=== PATIENT | female | born 1960 | race Caucasian/White ===

== ENCOUNTER 2023-07-05 11:49 | Day surgery (SDC) | payer OTHER ==
[2023-07-05] MEDS ORDERED: Depo-Medrol 40 MG/ML IM ONE (11:50)
[2023-07-05] MEDS ORDERED: BUPIVACAINE 0.5% VIAL IJ ONE (11:50)
[2023-07-05] MEDS ORDERED: DIPRIVAN 200 MG/20 ML IV ONE (15:03)
[2023-07-05] MEDS ORDERED: Lactated Ringers 1,000 ML IV ONE (16:01)
--- NOTE | 2023-07-05 16:40 | XRAY ---
Indication: Bilateral SI joint injection. Intraoperative fluoroscopy provided for 14 seconds. 4 digital spot image submitted for interpretation demonstrates posterior needle tip projecting over the left and right SI joint. Correlate with intraoperative findings/report.
--- NOTE | 2023-07-05 16:46 | XRAY ---
14 seconds of fluoroscopy was used in surgery for a bilateral sacroiliac joint injection.
== END 2023-07-05 15:33 | disposition home or self-care (01) ==
LOC: SDC-PAIN 11:49
PROVIDERS: ATTEND Psychiatry & Neurology Pain Medicine
DX: M46.1 Sacroiliitis, not elsewhere classified (principal)
CPT/HCPCS: 27096; 72202; 77002; J1030; J2704; G0260

== ENCOUNTER 2023-08-16 10:59 | Day surgery (SDC) | payer OTHER ==
[2023-08-16] MEDS ORDERED: Depo-Medrol 40 MG/ML IM ONE (11:00)
[2023-08-16] MEDS ORDERED: LIDOCAINE HCL 1% 50 MG/5 ML VL PF IJ ONE (11:00)
[2023-08-16] MEDS ORDERED: Sodium Chloride 0.9(Preservative Free) 10 ML IJ ONE (11:00)
[2023-08-16] MEDS ORDERED: DIPRIVAN 200 MG/20 ML IV ONE (13:29)
[2023-08-16] MEDS ORDERED: Lactated Ringers 1,000 ML IV ONE (14:21)
--- NOTE | 2023-08-16 14:39 | XRAY ---
Indication: Lumbar SEBASTIAN. Intraoperative fluoroscopy provided for 20 seconds. 2 digital spot images submitted for interpretation demonstrates posterior needle tip projecting posterior to lumbosacral junction interspace. Small amount of contrast injected for needle tip placement. Correlate with intraoperative findings/report.
--- NOTE | 2023-08-16 17:06 | XRAY ---
20 seconds of fluoroscopy was used in surgery for a left L3-L5 lumbar SEBASTIAN.
== END 2023-08-16 14:04 | disposition home or self-care (01) ==
LOC: SDC-PAIN 10:59
PROVIDERS: ATTEND Psychiatry & Neurology Pain Medicine
DX: M54.16 Radiculopathy, lumbar region (principal)
CPT/HCPCS: 62323; 72100; 77003; J1010; J2001; J2704; Q9966

== ENCOUNTER 2023-11-29 12:29 | Day surgery (SDC) | payer OTHER ==
[2023-11-29] MEDS ORDERED: Depo-Medrol 40 MG/ML IM ONE (12:30)
[2023-11-29] MEDS ORDERED: Sodium Chloride 0.9(Preservative Free) 10 ML IJ ONE (12:30)
[2023-11-29] MEDS ORDERED: Lactated Ringers 1,000 ML IV ONE (14:35)
[2023-11-29] MEDS ORDERED: DIPRIVAN 200 MG/20 ML IV ONE (14:40)
[2023-11-29] MEDS ORDERED: MORPHINE SULFATE 2 MG INJ ONE (14:59)
--- NOTE | 2023-11-29 15:17 | XRAY ---
Indication: Caudal SEBASTIAN. Intraoperative fluoroscopy provided for 14 seconds. 2 digital spot image submitted for interpretation demonstrates caudal needle tip projecting mid sacrum. Small amount of contrast injected for needle tip placement. Correlate with intraoperative findings/report.
--- NOTE | 2023-11-29 15:17 | XRAY ---
14 seconds of fluoroscopy was used in surgery for a caudal SEBASTIAN.
== END 2023-11-29 15:28 | disposition home or self-care (01) ==
LOC: SDC-PAIN 12:29
PROVIDERS: ATTEND Psychiatry & Neurology Pain Medicine
DX: M54.16 Radiculopathy, lumbar region (principal)
CPT/HCPCS: 62323; 72220; 77003; J2270; J2704; Q9966

== ENCOUNTER 2024-08-15 09:52 | Day surgery (SDC) | payer OTHER ==
[2024-08-15] MEDS ORDERED: BUPIVACAINE 0.5% VIAL IJ ONE (09:53)
[2024-08-15] MEDS ORDERED: LIDOCAINE HCL 1% AMPUL 5 ML IJ ONE (09:53)
[2024-08-15] MEDS ORDERED: Depo-Medrol 40 MG/ML IM ONE (09:53)
--- NOTE | 2024-08-15 13:03 | XRAY ---
Indication: Right knee injection. Intraoperative fluoroscopy provided for 11 seconds. Single digital spot image submitted for interpretation demonstrates needle tip projecting over right femur intercondylar notch. Small amount of contrast injected for needle tip placement. Correlate with intraoperative findings/report.
--- NOTE | 2024-08-15 13:05 | XRAY ---
Indication: Left knee injection. Intraoperative fluoroscopy provided for 13 seconds. Single digital spot image submitted for interpretation demonstrates needle tip projecting over left femur intercondylar notch. Small amount of contrast injected for needle tip placement. Correlate with intraoperative findings/report.
--- NOTE | 2024-08-15 13:07 | XRAY ---
13 seconds of fluoroscopy were used in surgery for a left intra-articular knee injection.
--- NOTE | 2024-08-15 13:07 | XRAY ---
11 seconds of fluoroscopy were used in surgery for a right intra-articular knee injection.
[2024-08-15] MEDS ORDERED: Lactated Ringers 1,000 ML IV ONE (13:13)
== END 2024-08-15 12:20 | disposition home or self-care (01) ==
LOC: SDC-PAIN 09:52
PROVIDERS: ATTEND Psychiatry & Neurology Pain Medicine
DX: M17.0 Bilateral primary osteoarthritis of knee (principal)
CPT/HCPCS: 20610; 73560; 77002; Q9966

== ENCOUNTER 2025-03-05 13:58 | Day surgery (SDC) | payer OTHER ==
[2025-03-05] MEDS ORDERED: LIDOCAINE HCL 2% 100 MG/5 ML IJ ONE (13:59)
[2025-03-05] MEDS ORDERED: methylPREDNISolone acetate IM ONE (13:59)
[2025-03-05] MEDS ORDERED: propofoL IV ONE (15:52)
--- NOTE | 2025-03-05 17:19 | XRAY ---
Indication: Bilateral L4-S1 MBB. Intraoperative fluoroscopy provided for 10 seconds. Single digital spot image submitted for interpretation demonstrates posterior needle tips projecting over expected left and right L4-S1 nerve roots. Correlate with intraoperative findings/report.
[2025-03-05] MEDS ORDERED: Lactated Ringers 1,000 ML IV ONE (17:26)
--- NOTE | 2025-03-05 17:35 | XRAY ---
10 seconds of fluoroscopy were used in surgery for a bilateral L4-S1 MBB.
== END 2025-03-05 16:30 | disposition home or self-care (01) ==
LOC: SDC-PAIN 13:58
PROVIDERS: ATTEND Psychiatry & Neurology Pain Medicine
DX: M47.817 Spondylosis without myelopathy or radiculopathy, lumbosacral region (principal)

== ENCOUNTER 2025-04-03 14:42 | Day surgery (SDC) | payer OTHER ==
[2025-04-03] MEDS ORDERED: BUPIVACAINE 0.5% VIAL IJ ONE (14:43)
[2025-04-03] MEDS ORDERED: Lactated Ringers 1,000 ML IV ONE (16:05)
[2025-04-03] MEDS ORDERED: propofoL IV ONE (16:37)
--- NOTE | 2025-04-03 17:12 | XRAY ---
Indication: Bilateral L4-S1 MBB. Intraoperative fluoroscopy provided for 15 seconds. Single digital spot images submitted for interpretation demonstrates posterior needle tips projecting over expected left and right L4-S1 nerve roots. Correlate with intraoperative findings/report.
--- NOTE | 2025-04-04 09:01 | XRAY ---
15 seconds of fluoroscopy were used in surgery for a bilateral L4-S1 MBB.
== END 2025-04-03 16:07 | disposition home or self-care (01) ==
LOC: SDC-PAIN 14:42
PROVIDERS: ATTEND Psychiatry & Neurology Pain Medicine
DX: M47.817 Spondylosis without myelopathy or radiculopathy, lumbosacral region (principal)